=== PATIENT | male | born 1970 | race African-American/Black ===

== ENCOUNTER 2018-03-11 22:57 | Inpatient (IN) ==
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
[2018-03-11] MEDS ORDERED: Diphtheria/Tetanus/Pertussis Vaccine Inj 0.5 ML Syringe IM ONE (23:14)
[2018-03-11 23:37] LABS: Baso % (Auto) 0.3 % (0.0-2.0); Eos % (Auto) 0.3 % (0.0-4.0); Hematocrit 37.8 % (39.0-51.0); Hemoglobin 12.9 gm/dL (13.0-17.0); Lymph # (Auto) 0.9 th/mm3 (1.0-4.8); Lymph % (Auto) 8.1 % (9.0-44.0); Mean Corpuscular HGB Conc 34.1 % (32.0-36.0); Mean Platelet Volume 8.3 fL (7.0-11.0); Mono # (Auto) 0.4 th/mm3 (0.0-0.9); Mono % (Auto) 3.8 % (0.0-8.0); Neut # (Auto) 9.8 th/mm3 (1.8-7.7); Neut % (Auto) 87.5 % (16.0-70.0); Platelet Count 214 th/mm3 (150-450); Red Cell Distribution Width 13.9 % (11.6-17.2); White Blood Count 11.2 th/mm3 (4.0-11.0)
[2018-03-11 23:57] LABS: Calcium 7.9 mg/dL (8.5-10.1); Carbon Dioxide 27.4 meq/L (21.0-32.0); Potassium 3.8 meq/L (3.5-5.1)
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
[2018-03-12] MEDS: Morphine Inj 4 MG/ML Vial IV.PUSH PRN ×4 (01:37→23:16)
[2018-03-12] MEDS ORDERED: Metoprolol Tartrate 25 MG Tablet PO ONE (02:45)
[2018-03-12] MEDS ORDERED: Chlorhexidine Gluconate 2% 1 Pack (2 Cloths) TOPICAL ONE ×2 (02:45→02:47)
[2018-03-12] MEDS ORDERED: Metoprolol Tartrate 25 MG Tablet PO SCH (02:47)
[2018-03-12] MEDS ORDERED: Sodium Chloride 0.9% 2 ML Flush PRN IV.FLUSH (02:51)
[2018-03-12] MEDS ORDERED: Sodium Chlor 0.9% Inj 500 ML IV.SIG SCH ×2 (03:00)
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
[2018-03-12] MEDS ORDERED: Influenza (Quadrivalent) Vaccine 0.5 ML Syringe IM ONE (08:00)
[2018-03-12] MEDS: Pantoprazole Inj 40 MG Vial IV.PUSH SCH (08:22)
[2018-03-12] MEDS ORDERED: Senna/Docusate Sodium 8.6/50 MG Tablet PO SCH (09:00)
[2018-03-12] MEDS: Enoxaparin Inj 40 MG/0.4 ML Syringe SQ SCH (09:01)
[2018-03-12] MEDS: Sodium Chloride 0.9% 2 ML Flush BID IV.FLUSH SCH ×2 (09:01→21:12)
[2018-03-12] MEDS ORDERED: ceFAZolin 1 GM Premix Inj 2 GM/100 ML PIGGYBACK IV.SIG ONE (10:06)
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
--- NOTE | 2018-03-12 10:42 | XR ---
EXAM DATE: 03/12/2018 10:39 AM EST AGE/SEX: 47 years / Male INDICATIONS: Evaluate for pneumonia, pneumothorax, or other communicable diseases. Pre op for tibia ORIF. CLINICAL DATA: This is the patient's initial encounter. Patient reports that signs and symptoms have been present for 1 day and indicates a pain score of 0/10. MEDICAL/SURGICAL HISTORY: None. None. COMPARISON: No prior exams available for comparison. FINDINGS: A single AP view of the chest demonstrates the lungs to be symmetrically aerated without evidence of mass, infiltrate or effusion. The cardiomediastinal contours are unremarkable. Osseous structures a re intact. CONCLUSION: No acute intrathoracic disease. Electronically signed by: Levar Shin MD Board Certified Radiologist 03/12/2018 10:40 AM EST
[2018-03-12] MEDS ORDERED: SODIUM CHLOR 0.9% IV.SIG SCH (11:00)
[2018-03-12] MEDS ORDERED: TRANEXAMIC ACID IV.SIG SCH (11:00)
[2018-03-12] MEDS ORDERED: fentaNYL Citrate Inj 100 MCG/2 ML Ampul ONE ×2 (12:28→13:30)
[2018-03-12] MEDS ORDERED: Bisacodyl 10 MG Supp RECTAL PRN (12:59)
[2018-03-12] MEDS ORDERED: Aluminum/Magnesium/Simethacone Susp 30 ML UDC PO PRN (12:59)
[2018-03-12] MEDS ORDERED: Post-op Orders (for Pharmacy) OTHER STA (12:59)
--- NOTE | 2018-03-12 13:04 | P.OP ---
Preoperative Diagnosis: Left segmental comminuted tibia/fibula fracture Postoperative Diagnosis: Same Date of procedure: 03/12/18 Procedure: Left tibia fracture treatment with intramedullary nail Anesthesia: GETA Surgeon: Riki Cordon MD Orthodontist Vice President: RACHELLE Pinto The surgical procedure was assisted by my Advanced Registered Nurse Practitioner. My TRUCK DRIVER RUBBISH COLLECTOR presence was necessary throughout this case for the manipulation and positioning of the surgical extremity. My TRUCK DRIVER RUBBISH COLLECTOR was assisting me throughout the duration of this procedure. The skill set of an Advance Registered Nurse Practitioner was medically necessary to complete this procedure. During the surgical case, the medical office technologist was working at the back table and the Advance Registered Nurse Practitioner was directly assisting me. Operation and Findings: Implants: Synthes tibal nail, size: Synthes 11 x 345 Estimated blood loss: 200 cc The patient received intravenous vancomycin and Ancef. After the appropriate anesthesia was administered, the patient was prepped and draped in the supine position in the usual sterile fashion. Skin assessment showed no open wounds. There was mild to moderate swelling noted to the leg with no evidence of compartment syndrome. We made incision proximal to the patella. We carefully dissected down to the quadriceps tendon. An in-line longitudinal split to the quadriceps tendon was completed. The capsule of the knee was entered. We placed the smooth trocar within the knee joint down to the proximal tibia, protecting the patella and trochlea during the case. We then reduced the tibia fractures manually and under fluoroscopic imaging. A ball-tipped guidewire was placed into the tibial shaft, passing the fracture sites. This was placed down to the distal physeal line of the tibia. We then sequentially reamed the tibia to 1 mm larger than the implanted tibial nail. We obtained good cortical chatter. We measured the appropriate length for the tibial nail. We then passed the tibial nail into the medullary canal of the tibia. We secured the nail distally with 2 Screws Using Perfect Cir. technique. We did this after bearing the nail slightly so that we could reverse impact the fractures. Once the screws were secure we reverse impacted. The nail was secured proximally with 3 screw(s), using the associated jig as a guide. We thoroughly irrigated the incisions including a lavage of the arthrotomy site proximally. The quadriceps split was closed with a #1 Vicryl. The remaining incisions were closed with #2-0 Vicryl, followed by claudia. A well-padded splint was required to provide further stabilization to the leg. The postoperative plan is for nonweightbearing. Chemical DVT prophylaxis will be performed with aspirin.
[2018-03-12] MEDS ORDERED: *morphine SULFATE 10 MG/ML PERIprocedure ONLY ONE (13:29)
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
[2018-03-12] MEDS: ceFAZolin Inj 1 GM in Sodium Chlor 0.9% Inj 100 ML IV.SIG SCH ×2 (17:15→23:08)
--- NOTE | 2018-03-12 18:19 | ECG ---
Date Performed: 03/12/2018 Time Performed: 04:27:36 PTAGE: 47 years EKG: Sinus tachycardia Normal ECG except for rate NO PREVIOUS TRACING DOCTOR: Gwen Javier Interpretating Date/Time 03/12/2018 18:19:04
[2018-03-12] MEDS ORDERED: Zolpidem Tartrate 5 MG Tablet PO PRN (21:00)
[2018-03-12] MEDS: Senna/Docusate Sodium 8.6/50 MG Tablet PO SCH (21:11)
[2018-03-12] MEDS: Multivitamin/Minerals Therapeutic Tablet PO SCH (21:11)
[2018-03-13] MEDS: Morphine Inj 4 MG/ML Vial IV.PUSH PRN (03:52)
[2018-03-13 04:24] LABS: Baso % (Auto) 0.2 % (0.0-2.0); Eos # (Auto) 0.2 th/mm3 (0.0-0.4); Eos % (Auto) 1.7 % (0.0-4.0); Hematocrit 36.1 % (39.0-51.0); Hemoglobin 12.2 gm/dL (13.0-17.0); Lymph # (Auto) 1.4 th/mm3 (1.0-4.8); Lymph % (Auto) 14.1 % (9.0-44.0); Mean Corpuscular HGB Conc 33.8 % (32.0-36.0); Mean Corpuscular Hemoglobin 30.3 pg (27.0-34.0); Mean Corpuscular Volume 89.6 fL (80.0-100.0); Mean Platelet Volume 8.5 fL (7.0-11.0); Mono # (Auto) 0.4 th/mm3 (0.0-0.9); Neut # (Auto) 7.8 th/mm3 (1.8-7.7); Platelet Count 167 th/mm3 (150-450); Red Blood Count 4.03 mil/mm3 (4.50-5.90); Red Cell Distribution Width 13.9 % (11.6-17.2); White Blood Count 9.8 th/mm3 (4.0-11.0)
[2018-03-13 04:48] LABS: Anion Gap 4 meq/L (5-15); Blood Urea Nitrogen 8 mg/dL (7-18); Carbon Dioxide 32.8 meq/L (21.0-32.0); Chloride 102 meq/L (98-107); Glomerular Filtration Rate Greater Than 89 mL/min (>89); Glucose,Random 125 mg/dL (74-106); Potassium 4.2 meq/L (3.5-5.1); Sodium 139 meq/L (136-145)
[2018-03-13] MEDS: ceFAZolin Inj 1 GM in Sodium Chlor 0.9% Inj 100 ML IV.SIG SCH (05:57)
[2018-03-13] MEDS: Pantoprazole Inj 40 MG Vial IV.PUSH SCH (06:00)
--- NOTE | 2018-03-13 07:21 | P.PNOP ---
Subjective Interval history: The patient is resting in bed with mild to moderate discomfort to the left lower extremity. Physical Exam Vital signs: Vital Signs 03/12/18 08:00 03/12/18 09:20 03/12/18 13:23 Temperature 102.9 F H 101.2 F H 100.1 F H Pulse Rate 102 H 112 H 113 H Respiratory Rate 20 16 18 Blood Pressure 122/69 113/65 114/60 Pulse Oximetry 95 90 L 94 L 03/12/18 13:30 03/12/18 13:45 03/12/18 14:00 Temperature 99.1 F Pulse Rate 101 H 104 H 98 H Respiratory Rate 18 19 22 Blood Pressure 139/76 128/73 130/75 Pulse Oximetry 93 L 93 L 95 03/12/18 14:15 03/12/18 14:25 03/12/18 14:30 Temperature 98.4 F Pulse Rate 100 H 97 H 94 H Respiratory Rate 19 19 16 Blood Pressure 134/74 134/74 131/80 Pulse Oximetry 95 94 L 95 03/12/18 18:43 03/12/18 19:08 03/12/18 21:41 Temperature 97.8 F Pulse Rate 97 H Respiratory Rate 18 18 18 Blood Pressure 117/73 Pulse Oximetry 92 L 03/12/18 23:18 03/13/18 01:29 03/13/18 04:36 Temperature 98.9 F 98.4 F Pulse Rate 104 H 93 H Respiratory Rate 18 18 18 Blood Pressure 115/79 134/82 Pulse Oximetry 92 L 92 L 03/13/18 04:56 Temperature Pulse Rate Respiratory Rate 18 Blood Pressure Pulse Oximetry Intake & Output 03/12/18 03/13/18 03/13/18 18:59 06:59 18:59 Intake Total 1680 / 1680 1060 / 1060 Output Total 500 / 500 1150 / 1150 Balance 1180 / 1180 -90 / -90 Weight 68 kg Intake: IV 1200 / 1200 100 / 100 Ofirmev Inj 1,000 mg In 100 ml 100 / 100 @ 0 mls/hr IV.SIG .STK-MED ONE Rx#:[id number] LR 1000 mL Inj 1,000 ML @ 30 1000 / 1000 mls/hr IV.SIG .Q24H [facility] Rx#: [id number] Ancef Inj 1 GM In NS Inj 100 ML 100 / 100 100 / 100 @ 100 mls/hr IV.SIG Q6H [facility] Rx #:[id number] Oral 480 / 480 960 / 960 Output: Urine 300 / 300 1150 / 1150 Estimated Blood Loss 200 / 200 Other: # Voids 3 4 Date of Last Bowel Movement 03/10/18 # Bowel Movements 0 Narrative: The patient's splint and dressing is clean, dry, and intact. The patient has brisk cap refill x5. The patient moves his toes and has minimal swelling about the toes. Sensation is intact to light touch distally. Results - Labs CBC & Chem 7: 03/13/18 03:43 03/13/18 03:43 Laboratory Results - last 24 hr 03/13/18 03/13/18 03:43 03:43 WBC 9.8 RBC 4.03 L Hgb 12.2 L Hct 36.1 L MCV 89.6 MCH 30.3 MCHC 33.8 RDW 13.9 Plt Count 167 MPV 8.5 Neut % (Auto) 80.0 H Lymph % (Auto) 14.1 [place] % (Auto) 4.0 Eos % (Auto) 1.7 Baso % (Auto) 0.2 Neut # (Auto) 7.8 H Lymph # (Auto) 1.4 [place] # (Auto) 0.4 Eos # (Auto) 0.2 Baso # (Auto) 0.0 WBC Differential . Differential Comment Auto diff final Sodium 139 Potassium 4.2 Chloride 102 Carbon Dioxide 32.8 H Anion Gap 4 L BUN 8 Creatinine 0.94 Estimated GFR Greater than 89 Random Glucose 125 H Calcium 8.0 L - Imaging Impressions Chest X-Ray 03/12/18 00:00 CONCLUSION: No acute intrathoracic disease. Tibia/Fibula X-Ray 03/12/18 00:00 CONCLUSION: Good alignment and position on this postoperative study. Tibia/Fibula X-Ray 03/12/18 06:42 CONCLUSION: Acute displaced angulated comminuted fractures involving the left mid tibia and fibula. There is also an acute comminuted fracture involving the left proximal tibia. - Procedures Left tibia fracture with intramedullary nail Assessment and Plan - Assessment and Plan POD #1: Left tibia fracture with intramedullary nail 1. Nonweightbearing on left lower extremity. 2. Aspirin 81 mg twice daily for DVT prophylaxis. 3. Ice as needed for swelling. 4. Stable per ortho for discharge to home health versus rehab when medically stable. 5. The patient will follow up with Dr. Cordon and/or RACHELLE Kevin as previously scheduled. 6. Maintain splint and dressings to the left lower extremity.
[2018-03-13 08:50] VITALS: TEMP 98.2; O2SAT 97
[2018-03-13] MEDS: Enoxaparin Inj 40 MG/0.4 ML Syringe SQ SCH (09:43)
[2018-03-13] MEDS: Senna/Docusate Sodium 8.6/50 MG Tablet PO SCH (09:43)
[2018-03-13] MEDS: Multivitamin/Minerals Therapeutic Tablet PO SCH (09:43)
[2018-03-13] MEDS: Sodium Chloride 0.9% 2 ML Flush BID IV.FLUSH SCH (09:43)
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
[2018-03-13 13:50] VITALS: BP 135/87; PULSE 101; RESP 19
== END 2018-03-13 16:33 | disposition home or self-care (01) | DRG 493 ==
LOC: NEPC 22:57 → NEDA 23:17 → N06 03-12 02:17
PROVIDERS: ADMIT Surgery; ATTEND Surgery
PROC: ORIFTIB (2018-03-12 11:16)
CPT/HCPCS: 71010; 71045; 73030; 73590; 76000; 80048; 85025; 90658; 90686; 90715; 93005; 94150; 97110; 97116; 97162; 99285; C1713; C1769; C9113; E0113; J0131; J0690; J1580; J1650; J2270; J3010; J3370; J7040; J7120; Q2038